=== PATIENT | female | born 1955 | race Caucasian/White ===

== ENCOUNTER 2020-03-14 08:17 | Outpatient (CLI) | payer MEDICAID ==
[~2020-03-14 08:17] MED LIST: ACET500C15 PO; LEVO125T PO
== END 2020-03-14 23:59 | disposition home or self-care (01) ==
LOC: CVU 08:17
PROVIDERS: ATTEND Nurse Practitioner Family
DX: I08.1 Rheumatic disorders of both mitral and tricuspid valves (principal)
CPT/HCPCS: 93306; 93356

== ENCOUNTER 2020-05-28 12:39 | Day surgery (SDC) | payer MEDICAID ==
[~2020-05-28] VITALS: Ht 158.8 cm; Wt 95.9 kg
[2020-05-28] MEDS ORDERED: DIPHENHYDRAMINE 50 MG/ML, 1ML ONE (13:14)
[2020-05-28 13:16] VITALS: BP 129/73
[2020-05-28] MEDS ORDERED: DIPHENHYDRAMINE 50 MG/ML, 1ML IVPush ONE (13:30)
[2020-05-28] MEDS ORDERED: SODIUM CHLORIDE 0.9% 1,000 ML IV SCH ×2 (13:30→15:30)
[2020-05-28] MEDS ORDERED: ALBU90AE INH (13:33)
[2020-05-28] MEDS ORDERED: LEVO125T63 PO (13:33)
[2020-05-28] MEDS ORDERED: METF500T17 PO (13:33)
[2020-05-28] MEDS ORDERED: SERT25TA3 PO (13:33)
[2020-05-28] MEDS ORDERED: CHOL10003 PO (13:34)
[2020-05-28] MEDS ORDERED: TIOT4MIS3 INH (13:34)
[2020-05-28 13:45] LABS: BASOPHILS % (AUTO) 1 % (0-1); EOSINOPHILS % (AUTO) 1 % (1-7); LYMPHOCYTES % (AUTO) 19 % (22-44); MEAN CORPUSCULAR HEMOGLOBIN 28.2 pg (27.0-34.8); MEAN CORPUSCULAR HGB CONC 32.4 g/dL (32.4-35.8); MEAN PLATELET VOLUME 9.2 fL (7.4-10.4); MONOCYTES % (AUTO) 7 % (2-9); NEUTROPHILS % (AUTO) 71 % (42-75); PLATELET COUNT 216 x10^3/uL (130-400); RED BLOOD COUNT 4.96 x10^6/uL (3.82-5.3); RED CELL DISTRIBUTION WIDTH 15.6 % (9.6-15.2)
[2020-05-28 13:47] LABS: MD NO
[2020-05-28 13:53] LABS: ANION GAP 6 mmol/L (5-15); CALCIUM 8.7 mg/dL (8.5-10.1); CHLORIDE 115 mmol/L (98-107); CREATININE 1.02 mg/dL (0.55-1.02)
[2020-05-28] MEDS ORDERED: FENTANYL PF 100 MCG/2ML ONE (13:54)
[2020-05-28] MEDS ORDERED: MIDAZOLAM 1 MG/ML, 5ML ONE (13:54)
[2020-05-28] MEDS ORDERED: VERAPAMIL 2.5 MG/ML, 2ML ONE (13:54)
[2020-05-28 13:55] LABS: INTERNATIONAL NORMALIZED RATIO 0.97 (0.93-1.1)
[2020-05-28] MEDS ORDERED: HEPARIN 1,000 UNITS/ML, 10ML ONE (13:55)
[2020-05-28] MEDS ORDERED: LIDOCAINE 2%, 20ML ONE (13:55)
== END 2020-05-28 16:42 | disposition home or self-care (01) ==
LOC: CACL 12:39
PROVIDERS: ATTEND Internal Medicine Cardiovascular Disease
DX: I27.20 Pulmonary hypertension, unspecified (principal); E11.9 Type 2 diabetes mellitus without complications; J44.9 Chronic obstructive pulmonary disease, unspecified; G47.30 Sleep apnea, unspecified; F17.209 Nicotine dependence, unspecified, with unspecified nicotine-induced disorders; Z79.899 Other long term (current) drug therapy; Z98.890 Other specified postprocedural states; Z72.89 Other problems related to lifestyle; Z82.49 Family history of ischemic heart disease and other diseases of the circulatory system
CPT/HCPCS: 36415; 76937; 80048; 82330; 82803; 82947; 83880; 84132; 84295; 85014; 85025; 85610; 93460; 99156; 99157; C1769; C1894; J1200; J1644; J2250; J3010